=== PATIENT | male | born 1945 | race Caucasian/White ===

== ENCOUNTER → 2019-05-06 | Outpatient (CLI) | payer MEDICARE, OTHER ==
[~2019-05-06] MED LIST: CRESTOR5 MG PO; LYRICA100 MG PO; RAMIPRIL10 MG PO; TYLENOL WITH C1 EACH PO; VITAMIN D35000 UNIT PO
--- NOTE | 2019-05-06 13:05 | Diagnostic Imaging Report ---
EXAMINATION: HIP RIGHT 2-3 VW (+/- PELVIS) INDICATION: Right hip pain COMPARISON: None FINDINGS: AP and frog-leg projection images of the right hip demonstrate no acute fracture or dislocation. Alignment is anatomic. Mild degenerative changes of the right hip joint with joint space narrowing and small osteophyte formation. Mild scattered atherosclerotic arterial calcifications. The soft tissues appear unremarkable. IMPRESSION: No acute osseous injury. Mild right hip degenerative changes. Signed by: Sigifredo Garcia MD on 05/06/2019 1:02 PM
== END ==
LOC: RAD 11:11
PROVIDERS: ATTEND Internal Medicine
DX: M25.551 Pain in right hip (principal)